=== PATIENT | male | born 1950 | race Caucasian/White ===

== ENCOUNTER → 2017-06-29 | Day surgery (SDC) | payer MEDICARE ==
[~2017-06-29] VITALS: Ht 182.9 cm; Wt 83.9 kg
[~2017-06-29] MED LIST: 0.9% Sodium Chloride 1,000 ML IV SCH; NO HOME MEDS; Sodium Chloride LOK Flush 10 mL Syringe IV PRN; fentaNYL-PF 50 mCg/mL 2 mL Inj IVPUSH PRN
[2017-06-29 09:18] VITALS: BP 131/88; PULSE 56; RESP 16; O2SAT 96
[2017-06-29 10:42] VITALS: BP 109/72; PULSE 52; RESP 12; O2SAT 97
[2017-06-29 10:52] VITALS: BP 104/69; PULSE 47; RESP 16; O2SAT 94
[2017-06-29 11:02] VITALS: BP 101/69; PULSE 55; RESP 16; O2SAT 95
[2017-06-29 11:12] VITALS: BP 105/69; PULSE 55; RESP 16; O2SAT 94
--- NOTE | 2017-06-29 13:01 | ENDO ---
[address] [address] ENDOSCOPY PROCEDURE PATIENT: SHAN GARCIA : 1950 MR#: [id number] ADMIT: 06/29/2017 JOB ID: [id number] PROCEDURE: Colonoscopy. INDICATION: Change in bowel habits. Patient's ASA classification is II. Mallampati score is II. MEDICATIONS: Versed 5 mg, fentanyl 100 mcg. INSTRUMENT USED: PCF-H180AL. PREPARATION QUALITY: Fair. PROCEDURE DETAILS: After informed consent was obtained, the patient was brought into the GI suite, where he was placed on oxygen via nasal cannula and monitored with continuous pulse oximeter, telemetry, and blood pressure monitoring. A time-out was performed. Then, he was placed in a left lateral decubitus position and medications were administered for sedation. Digital rectal exam was performed which was unremarkable. The standard colonoscope was inserted into the rectum and advanced under direct visualization to the cecum, which was identified by the presence of the ileocecal valve and appendiceal orifice. Once the cecum was reached, colonoscope was withdrawn back into the rectum and mucosa and lumen were examined. In the rectum, retroflexion was performed. Following retroflexion, remaining air in the rectum was suctioned, and procedure was completed. FINDINGS: 1. In the proximal ascending colon, there was an approximately 6 mm sessile polyp that was removed with a hot snare. Following removal, there was bleeding at the polypectomy site, and therefore, one hemoclip was placed successfully for hemostasis. 2. Just distal to this was a diminutive polyp that was removed with cold biopsy forceps. 3. Multiple random biopsies were obtained throughout the colon. 4. Significant diverticulosis was noted on the left side. 5. Retroflexed views in the rectum revealed internal hemorrhoids. IMPRESSION: 1. Two ascending colon polyps. 2. Left-sided diverticulosis. 3. Internal hemorrhoids. RECOMMENDATIONS: 1. Avoid NSAIDs and anticoagulants for 72 hours. 2. Repeat colonoscopy pending polyp pathology results. 3. Follow up in GI clinic in 2-4 weeks. COMPLICATIONS: None. ESTIMATED BLOOD LOSS: Less than 5 mL.
--- NOTE | 2017-07-03 12:00 | PATH ---
SURGICAL PATHOLOGY Attending Physician:Yonis Moon CASE STATUS: Signed Out PATIENT NAME: SHAN GARCIA PID: [id number] : 1950 DATE COLLECTED:06/29/2017 19:30 SPECIMEN: 1: Colon, Polyp 2: Colon, Biopsy CLINICAL HISTORY: 1). ASCENDING COLON POLYPS 2). RANDOM COLON BIOPSY FINAL DIAGNOSIS: 1. Ascending Colon, Polyps, Biopsies: Tubular adenomas. 2. Random Colon, Biopsy: Colonic mucosa with no diagnostic abnormality. Negative for active, chronic and microscopic colitis. Negative for dysplasia and malignancy. ICD10: D12.2 GROSS DESCRIPTION: The specimens are received in formalin, labeled with the patient's name, and sublabeled as the following: (1) ascending colon polyps; (2) random colon bx' s. (1) The specimen consists of multiple fragments of pope glistening semitranslucent tissue (1 x 0.3 x 0.1 cm in aggregate). Section code: (1A) tissue. Specimen entirely submitted. (2) The specimen consists of multiple fragments of pope glistening semitranslucent tissue (1.7 x 0.7 x 0.1 cm in aggregate). Section code: (2A) tissue. Specimen entirely submitted. 06/30/17 ICD-9 CODES: CPT CODES: 1: 45077 2: 44966 Electronically Signed Out Kanika Navas MD [facility] Pathology [facility], [place] [address] Technical component performed at [facility], [address] [place] [address] Ave[address], [place], [address]
== END | disposition home or self-care (01) ==
LOC: END 00:04
PROVIDERS: ATTEND Internal Medicine Gastroenterology
DX: D12.2 Benign neoplasm of ascending colon (principal); K64.8 Other hemorrhoids; K57.30 Diverticulosis of large intestine without perforation or abscess without bleeding; R19.4 Change in bowel habit; Z87.891 Personal history of nicotine dependence
CPT/HCPCS: 45380; 45385; 88305; 99153; G0500; J2250; J3010; J7030